=== PATIENT | male | born 1960 | race Caucasian/White ===

== ENCOUNTER 2024-07-11 07:55 | Outpatient (AMB) | payer OTHER, SELFPAY ==
--- NOTE | 2024-07-11 08:17 | A.OFFVIS_ITS ---
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 He started noticing intermittent tremors about 1 year ago.He is not clear if it is at rest or with action . Now he feels the tremors in his whole UE. He denies any tremors in left. He has paresthesias in tom hands intermittently for past 2 years.He denies pain. He also has balance issues and neck pain for past few months. Stress increases his tremors. He has h/o sleep apnea but does not use his CPAP. No mood issues. No change in speech . Has occasional drooling at night.No change in handwriting.No difficulty with using utensils, hand movements, dressing and showering No falls No hallucinations No dizziness PFSH Medical History (Updated 07/11/24 @ 09:04 by Ladonna Leiva MD) Paresthesias Cervicalgia Coarse tremors Weak urine stream Tremor of right hand Chronic sinusitis Prediabetes Polyarthralgia Morbid obesity Male perineal pain Hyperlipemia HTN (hypertension) Dyspnea on exertion Cervical radiculopathy Abnormal smell Surgical History History of appendectomy H/O right knee surgery History of back surgery Social History Household Members: Spouse and Children Housing: House Alcohol intake: current Comment: social- Beer Patient Tobacco Use Status: Never used Tobacco Physical Exam Vital Signs: Last Vital Signs Pulse 84 07/11/24 08:19 Resp 16 07/11/24 08:19 BP 142/70 H 07/11/24 08:19 Pulse Ox 100 07/11/24 08:19 Oxygen Delivery Method Room Air 07/11/24 08:19 BMI result Body Mass Index 40.3 Const General: cooperative and comfortable Nutritional Appearance: obese Orientation/consciousness: patient oriented x3 Eyes Pupils: Equal, round and reactive pupils present Neuro Other: Right UE postural tremors , action tremors 1 + cog wheel rigidity FFM mild decrease right hand Gait- antalgic , no arm swings on the right mild decreased facial expression and blink Neck decreased range of motion General: patient oriented x3, moves all extremities and no focal motor deficits Cranial nerves: Yes Facial sensation intact/muscles of mastication intact, Yes Equal, round and reactive pupils present, Yes Bilaterally intact EOM present, Yes Nystagmus not present, Yes Normal facial strength present, Yes Midline tongue present and Yes Symmetric palate elevation present Cognition (Neuro): normal cognition Motor exam (neuro): 5/5 motor strength present throughout Deep tendon reflexes (DTR's): Right triceps reflex intensity grade: 1+, Left triceps reflex intensity grade: 1+, Rt Biceps (C5, C6): 1+, Left biceps reflex intensity grade: 1+, Right brachioradialis reflex intensity grade: 1+, Left brachioradialis reflex intensity grade: 1+, Right patellar reflex intensity gr merly: 1+ and Left patellar reflex intensity grade: 1+ Coordination: [id number] test normal Assessment & Plan Assessment & Plan (1) Coarse tremors: Comment: with mild extrapyramidal symptoms Code(s): G25.2 - Other specified forms of tremor Category: Medical (2) Cervicalgia: Code(s): M54.2 - Cervicalgia Category: Medical (3) Paresthesias: Code(s): R20.2 - Paresthesia of skin Category: Medical Plan EMG NCS tom Ue for paretshesias PT for neck OT for hands will monitor tremors clincially will consider sleep study- patient declines for now. Orders: Orders OT Evaluation and Treatment Today G25.2 - Other specified forms of tremor NE electromyogram (EMG) Today R20.2 - Paresthesia of skin NE nerve conduction velocity Today R20.2 - Paresthesia of skin PT Evaluation and Treatment Today M54.2 - Cervicalgia Coding Level of Care Code New Pt Level 4 (02003) Complex EM visit Add On G2211 Diagnoses Coarse tremors G25.2 Cervicalgia M54.2 Paresthesias R20.2
[2024-07-11 08:19] VITALS: BP 142/70; PULSE 84; RESP 16; O2SAT 100; BMI 40.3
== END 2024-07-11 09:01 | disposition home or self-care (01) ==
PROVIDERS: PCP Internal Medicine; Visit Provider Psychiatry & Neurology Neurology
DX: G25.2 Other specified forms of tremor (principal); M54.2 Cervicalgia; R20.2 Paresthesia of skin
CPT/HCPCS: 99204; G2211

== ENCOUNTER → 2024-07-11 07:55 | Outpatient (BNVA) | payer OTHER, SELFPAY | PROVIDERS: PCP Internal Medicine; Visit Provider Psychiatry & Neurology Neurology ==

== ENCOUNTER 2024-07-21 08:52 | Outpatient (REF) | payer MEDICARE, OTHER, SELFPAY ==
--- NOTE | 2024-07-21 08:56 | EMG_ITS ---
Chief complaint: Right hand tremors, bilateral hand numbness Reason for referral: Evaluate for Carpal Tunnel Syndrome Referred by: Dr. Leiva Procedure done: Bilateral upper extremities NCS/EMG Precautions and/or limitations: None The limb temperature was monitored continuously and remained between 32-36 degrees C during the performance of the NCS. Nerve Conduction Studies Anti Sensory Summary Table ?Stim Site NR Onset (ms) Norm Onset (ms) Peak (ms) Norm Peak (ms) O-P Amp (?V) Norm O-P Amp Site1 Site2 Delta-0 (ms) Dist (cm) Nelson (m/s) Norm Nelson (m/s) Left Median Anti Sensory (2nd Digit) Wrist ? 3.3 4.5 <3.6 25.9 >10 Wrist 2nd Digit 3.3 14.0 42 Right Median Anti Sensory (2nd Digit) Wrist ? 3.5 4.4 <3.6 23.2 >10 Wrist 2nd Digit 3.5 14.0 40 Right Radial Anti Sensory (Thumb) Forearm ? 1.7 2.3 <3.1 18.9 Forearm Thumb 1.7 0.0 Left Ulnar Anti Sensory (5th Digit) Wrist ? 2.1 3.7 <3.7 15.0 >15.0 Wrist 5th Digit 2.1 14.0 67 Right Ulnar Anti Sensory (5th Digit) Wrist ? 2.4 3.6 <3.7 14.9 >15.0 Wrist 5th Digit 2.4 14.0 58 Motor Summary Table ?Stim Site NR Onset (ms) Norm Onset (ms) O-P Amp (mV) Norm O-P Amp iAmp (mV) Amp (1st) (%) Site1 Site2 Delta-0 (ms) Dist (cm) Nelson (m/s) Norm Nelson (m/s) Left Median Motor (Abd Poll Brev) Wrist ? 4.1 <3.9 7.3 >4.5 8.4 100.0 Elbow Wrist 4.5 25.5 57 >45 Elbow ? 8.6 6.7 7.8 91.8 Right Median Motor (Abd Poll Brev) Wrist ? 4.3 <3.9 10.7 >4.5 12.0 100.0 Elbow Wrist 4.5 24.0 53 >45 Elbow ? 8.8 10.6 12.0 99.1 Left Ulnar Motor (Abd Dig Minimi) Wrist ? 2.7 <3.0 10.9 >5 12.1 100.0 B Elbow Wrist 4.6 23.0 50 >45 B Elbow ? 7.3 9.9 10.8 90.8 A Elbow B Elbow 1.5 10.0 67 >45 A Elbow ? 8.8 9.5 10.4 87.2 Right Ulnar Motor (Abd Dig Minimi) Wrist ? 3.0 <3.0 10.9 >5 11.9 100.0 B Elbow Wrist 4.3 22.5 52 >45 B Elbow ? 7.3 10.0 10.3 91.7 A Elbow B Elbow 1.5 10.0 67 >45 A Elbow ? 8.8 9.7 11.8 89.0 EMG ?Side Muscle Nerve Root Ins Act Fibs Psw Amp Dur Poly Recrt Int Pat Comment Right 1stDorInt Ulnar C8-T1 Nml Nml Nml Nml Nml 0 Nml Complete Right FlexCarRad Median C6-7 Nml Nml Nml Nml Nml 0 Nml Complete Right Biceps Musculocut C5-6 Nml Nml Nml Nml Nml 0 Nml Complete Right Triceps Radial C6-7-8 Nml Nml Nml Nml Nml 0 Nml Complete Right Deltoid Axillary C5-6 Nml Nml Nml Nml Nml 0 Nml Complete Left 1stDorInt Ulnar C8-T1 Nml Nml Nml Nml Nml 0 Nml Complete Left FlexCarRad Median C6-7 Nml Nml Nml Nml Nml 0 Nml Complete Left Biceps Musculocut C5-6 Nml Nml Nml Nml Nml 0 Nml Complete Left Triceps Radial C6-7-8 Nml Nml Nml Nml Nml 0 Nml Complete Left Deltoid Axillary C5-6 Nml Nml Nml Nml Nml 0 Nml Complete FINDINGS: Bilateral median motor nerves showed prolonged distal latency, normal amplitude and normal conduction velocity. Bilateral median sensory nerves showed prolonged peak latency. All other nerves tested were within normal. Concentric needle EMG was performed in selected muscles of the bilateral upper extremities. Study did not reveal signs of electric abnormalities as shown in the table above. IMPRESSION: 1. This is an abnormal study. 2. There is electrodiagnostic evidence for bilateral moderate-severe median neuropathy at the wrist, consistent with carpal tunnel syndrome. 3. There is no electrodiagnostic evidence for ulnar neuropathy, brachial plexopathy, or cervical radiculopathy. Thank you for your kind referral. Faith Desouza MD, [place] Board Certified, [place] [employer] and Rehabilitation (ABPMR) Board Certified, [place] Board of Electrodiagnostic Medicine (ABEM) CODIN [id number] x 2 MTDD
== END 2024-07-21 08:53 | disposition home or self-care (01) ==
LOC: HO.NEURO 08:52
PROVIDERS: PCP Internal Medicine; Visit Provider Psychiatry & Neurology Neurology
DX: R20.2 Paresthesia of skin (principal)
CPT/HCPCS: 95886; 95911

== ENCOUNTER → 2024-07-21 08:56 | Outpatient (BNV) | payer OTHER, SELFPAY | PROVIDERS: PCP Internal Medicine; Visit Provider Physical Medicine & Rehabilitation | DX: G56.03 Carpal tunnel syndrome, bilateral upper limbs (principal) | CPT/HCPCS: 95886; 95911 ==

== ENCOUNTER 2025-01-29 08:52 | Outpatient (AMB) | payer OTHER, SELFPAY ==
--- NOTE | 2025-01-29 08:55 | MHC.OFFVIS ---
Vital Signs 01/29/25 08:56 Height 6 ft Weight 294 lb BMI 39.9 BP 124/78 Blood Pressure Location Rt brachial Position Sitting Pulse 88 Pulse Source Pulse Oximeter Pulse Oximetry (%) 98 Oxygen Delivery Method Room Air Intake Visit Reasons: Follow up Tremor Intake Note: Patient presents for follow up EMG nerve conduction studies done 07/21/24. patient did not schedule PT. couldnt take time off. Allergies No Known Allergies Allergy (Verified 01/29/25 08:58) Medication List - Last Reconciled 01/29/25 by Ladonna Leiva MD atorvastatin 10 mg PO DAILY clopidogrel 75 mg PO DAILY fluticasone propionate 50 mcg/actuation (Flonase Allergy Relief) 1 spray intranasal DAILY lisinopril-hydrochlorothiazide 10-12.5 mg 1 tab PO DAILY methocarbamol 750 mg PO TID HPI Comments Details: 64y/o right handed male comes for follow up of right handed tremors.His EMG was c/w tom median neuropathy- patient feels his parasthesias and pain are less. Tremors are less compared to last visit. History form initial viist- He started noticing intermittent tremors about 1 year ago.He is not clear if it is at rest or with action . Now he feels the tremors in his whole UE. He denies any tremors in left. He has paresthesias in tom hands intermittently for past 2 years.He denies pain. He also has balance issues and neck pain for past few months. Stress increases his tremors. He has h/o sleep apnea but does not use his CPAP. No mood issues. No change in speech . Has occasional drooling at night.No change in handwriting.No difficulty with using utensils, hand movements, dressing and showering No falls No hallucinations No dizziness PFSH Medical History Carpal tunnel syndrome on both sides Paresthesias Cervicalgia Coarse tremors Weak urine stream Tremor of right hand Chronic sinusitis Prediabetes Polyarthralgia Morbid obesity Male perineal pain Hyperlipemia HTN (hypertension) Dyspnea on exertion Cervical radiculopathy Abnormal smell Surgical History H/O eye surgery History of appendectomy H/O right knee surgery History of back surgery Social History Household Members: Spouse and Children Housing: House Alcohol intake: current Comment: social- Beer Patient Tobacco Use Status: Never used Tobacco Physical Exam Vital Signs: Last Vital Signs Pulse 88 01/29/25 08:56 BP 124/78 01/29/25 08:56 Pulse Ox 98 01/29/25 08:56 Oxygen Delivery Method Room Air 01/29/25 08:56 BMI result Body Mass Index 39.9 Const General: cooperative and comfortable Nutritional Appearance: obese Orientation/consciousness: patient oriented x3 Eyes Pupils: Equal, round and reactive pupils present Neuro Other: Right UE postural tremors , action tremors 1 + cog wheel rigidity FFM mild decrease right hand Gait- antalgic , no arm swings on the right mild decreased facial expression and blink Neck decreased range of motion General: patient oriented x3, moves all extremities and no focal motor deficits Cranial nerves: Yes Facial sensation intact/muscles of mastication intact, Yes Equal, round and reactive pupils present, Yes Bilaterally intact EOM present, Yes Nystagmus not present, Yes Normal facial strength present, Yes Midline tongue present and Yes Symmetric palate elevation present Cognition (Neuro): normal cognition Motor exam (neuro): 5/5 motor strength present throughout Coordination: [id number] test normal Assessment & Plan Assessment & Plan (1) Coarse tremors: Comment: with mild extrapyramidal symptoms Code(s): G25.2 - Other specified forms of tremor Category: Medical (2) Cervicalgia: Code(s): M54.2 - Cervicalgia Category: Medical (3) Paresthesias: Code(s): R20.2 - Paresthesia of skin Category: Medical (4) Carpal tunnel syndrome on both sides: Code(s): G56.03 - Carpal tunnel syndrome, bilateral upper limbs Category: Medical Plan EMG discussed wrist splints for the night will monitor tremors clincially will consider sleep study- patient declines for now. Medications: New [wrist splints] As directed 1 ea 0RF carpal tunnel Coding Level of Care Code Est Pt Level 4 (42986) Diagnoses Coarse tremors G25.2 Cervicalgia M54.2 Paresthesias R20.2 Carpal tunnel syndrome on both sides G56.03
[2025-01-29 08:56] VITALS: BP 124/78; PULSE 88; O2SAT 98; BMI 39.9
--- OUTSIDE RECORDS SUMMARY | 2025-01-29 09:18 | XMS_ITS | Data Portability ---
Author Organization [place] - [facility], Allergy Address [address] [facility] [address] [place] [phone] Assessment Encounter Date Assessment Date Assessment LastModified by Organization Details LastModified Time 04/03/2024 04/03/2024 63-year-old male presents for evaluation of possible nasal polyp. Anterior rhinoscopy is unremarkable without obvious polyp or nasal drainage. Nasal endoscopy was performed today and shows no concerning findings. Examination of the oral cavity reveals fasciculation of the tongue. Patient also has resting tremor in his hands. His exam is suspicious for neurologic process. Highly recommended he keep his neurology appointment next month. May continue Flonase as this has helped with nasal drainage. No further ENT intervention recommended. [email or web address] Not available 04/03/2024 11:08:39 Plan of Treatment Reminders Order Date Submit Date Provider Last Modified By Organization Details Last Modified Time Details Appointments None record ed. Lab None record ed. Referral None record ed. Procedures None record ed. Surgeries None record ed. Imaging None record ed. Medication Orders None record ed. Patient TargetsNo targets recorded. Patient InstructionsNo instructions recorded. Reason for Referral None Reported. Problems Name Problem SNOMED Code Status Onset Date Resolution Date Notes Provider Name and Address Organization Details Recorded Time Nasal congestion 33619962 Active 2023 Lindy caballero [place] - [facility] 4 10:41:30 Parosmia 180432907 Active 2023 CRISTA BONILLA PA-C [address] [place] [address],[place] [id number], [place], [phone] , [place] - [facility] 4 11:10:51 Resting tremor 63348029 Active 2023 CRISTA BONILLA PA-C [address] [place] [address],[address], [phone] , [facility] - [facility] 4 11:11:10 Problem Notes None recorded. Procedures Surgical History Date Name Laterality Status Provider Name and Address Organization Details Recorded Time 4 JMSNasal/Sinus Endoscopy completed CRISTA BONILLA PA-C [address] [place] [address], [phone], [facility] - [facility] 04/03/2024 11:09:26 Imaging Results None recorded. Procedure Notes None recorded. Medical Equipment None Reported. Allergies No known drug allergies Medications Name Sig Start Date Stop Date Status Note LastModified by Organization Details LastModified Time atorvastatin 20 mg tablet Take 1 tablet every day by oral route. active Not Available Not Available No t Available clopidogrel 75 mg tablet Take 1 tablet every day by oral route. active Not Available Not Available No t Available aspirin 81 mg chewable tablet Chew 1 tablet every day by oral route. active Not Available Not Available No t Available fluticasone 100 mcg-salmeter ol 50 mcg/dose blistr powdr for inhalation Inhale 1 puff twice a day by inhalation route. active Not Available Not Available No t Available lisinopril 10 mg-hydrochlo rothiazide 12.5 mg tablet Take 1 tablet every day by oral route. active Not Available Not Available No t Available cyclobenzapr ine active Not Available Not Available Not Available Vitals Date Recorded Body height Body mass index (BMI) Body weight Provider Name and Address Organization Details Last Updated DateTime 04/03/2024 180.34 cm 40.4 kg/m2 028387.79 g Lindy Demarco [place] - [facility] 04/03/2024 10:37:01 Social History None recorded. Functional Status None recorded. Mental Status None recorded. Family History Nothing Reported. Medical History No medical history recorded. Past Encounters Encounter ID Performer Location Encounter Start Date Encounter Closed Date Diagnosis/Indication Diagnosis SNOMED-CT Code Diagnosis ICD10 Code Diagnosis Note [id number] CRISTA BONILLA PA-C [facility] [address] [phone] 04/03/2024 10:27:05 04/03/2024 10:56:40 Parosmia 614591774 R43.1 Resting tremor 25536328 G25.2 Health Concerns Section Related Observation LastModified by Organization Detai ls LastModified Time None Recorded Concern Status LastModified by Organization Details LastModified Time None Recorded Advance Directives Directive None Recorded Payers Encounter Date Sequence Insurance Name Policy Number Policy Bennett Covered Member ID Bennett Member ID Guarantor Name 04/03/2024 1 [facility] [id number] Tha Joseph [id number] Tha Joseph Notes Date Note Type Note Provider Name and Address Organization Details Recorded Time 04/03/2024 text/html 63-year-old male presents for evaluation of possible nasal polyps. Patient states that for the last year or 2 he has been having an abnormal smell of ammonia in his nose. He was having thick white nasal discharge but was started on Flonase by his primary care and this has resolved. Having some frontal headaches with sensitivity to light and sound. Was having some nausea in relation to postnasal drip but this has resolved. He is also having chronic neck pain and a new onset tremor. Is scheduled to see neurology next month. CRISTA BONILLA PA-C [address] [place] [address], [phone], [facility] - [facility] 04/03/2024 11:12:36
--- OUTSIDE RECORDS SUMMARY | 2025-01-29 09:18 | XMS_ITS | Continuity of Care Document ---
Author Organization [facility] Address [address] [place] [address]- Care Team Providers Care Business Applications Manager Name Role Phone Sarkis ROCHE, Carlyle Primary Care Physician [place] [facility] [place]/25 [facility] [address] [place] [id number] Encounter Type: Triage Allergies, Adverse Reactions, Alerts No Known Medication Allergies Immunizations Given and Recorded Vaccine Date Status Refusal Reason influenza virus vaccine, inactivated 08/28/23 Matias rded influenza virus vaccine, inactivated 10/28/22 Matias rded influenza virus vaccine, inactivated 1 09/22/21 Gi kassi influenza virus vaccine, inactivated 2 09/13/20 Gi kassi SARS-CoV-2(COVID-19)mRNA-LNP vac([id number]) 08/28/23 Recorded tetanus/diphtheria/pertussis, acel(Tdap) 07/07/23 Given [id number] 12y+ bivalent booster vax 08/15/22 Recorded SARS-CoV-2 mRNA ([id number]) vax 04/18/22 Recorded SARS-CoV-2 (COVID-19) mRNA BNT-162b2 vac 11/13/21 Recorded SARS-CoV-2 (COVID-19) mRNA BNT-162b2 vac 04/06/21 Recorded SARS-CoV-2 (COVID-19) mRNA BNT-162b2 vac 03/16/21 Recorded 1Result Comment: [id number] 2Result Comment: [id number] Medications atorvastatin 20 mg oral tablet See Instructions, TAKE 1 TABLET BY MOUTH EVERY DAY AFTER SUPPER, # 90 tablet, 1 Refills, Maintenance, 09/21/24 12:36:00 PM EST, [facility] STORE [id number], 180, cm, 07/25/24 7:48:00 EDT, Height, 132.6, kg, 02/19/24 18:33:00 EDT, Dry Weight Start Date: 09/21/24 Status: Ordered Quantity: 90.0 Unit: tablet Repeat number: 1 clopidogrel 75 mg oral tablet 75 mg, 1, tablet, By Mouth, Daily, # 90 tablet, Refills 0, Tot. Refills 0, Maintenance, 12/22/24 11:53:00 AM EST, Route to Pharmacy Electronically, [facility]/pharmacy #[id number], Partial fill upon patient requestif the prescription is for a schedule II opioid drug., 180, cm, 10/18/24 7:15:00 EST, Height, 135.9, kg, 10/18/24 7:15:00 EST, Dry Weight Start Date: 12/22/24 Stop Date: 03/22/25 Status: Ordered Quantity: 90.0 Unit: tablet Repeat number: 1 hydrochlorothiazide-lisinopril 12.5 mg-10 mg oral tablet 1 tablet, By Mouth, Daily, # 90 tablet, 1 Refills, Maintenance, 12/27/24 3:19:00 PM EST, [facility]/pharmacy #[id number], 90, 1 tablet By Mouth Daily, 180, cm, 10/18/24 7:15:00 EST, Height, 135.9, kg, 10/18/24 7:15:00 EST, Dry Weight Start Date: 12/27/24 Status: Ordered Quantity: 90.0 Unit: tablet Repeat number: 2 Voltaren Topical = 2 Gm, Topically, 4 times a day, 0 Refills, Maintenance, 10/02/24 10:35:00 AM EST, Partial fill upon patient request if the prescription is for a schedule II opioid drug. Start Date: 10/02/24 Status: Ordered Repeat number: 1 Problem List Condition Confirmation Course Effective Dates Status H ealth Status Informant Abnormal vision Confirmed Active Cervical radiculopathy Confirmed Active Sinusitis, chronic Confirmed Active Vaccine counseling Confirmed Active Dyspnea on exertion Confirmed Active Tremor of right hand Confirmed Active Hyperlipidemia Confirmed Active HTN (hypertension) Confirmed Active Morbid obesity Confirmed Active Polyarthralgia Confirmed Active Male perineal pain Confirmed Active Weak urine stream Confirmed Active Prediabetes Confirmed Active Severe obesity Confirmed Active Abnormal smell Confirmed Active Social History Social History Type Response Smoking Status Never (less than 100 in lifetime) entered on: 10/02/24 Sex Sex Representation Male (finding) Patient Care team information Care Team Personnel Name: Carlyle Dockery MD Position: [facility] Physician - Primary Care Member Role: PCP Address: [address] [place] [id number] Telecom: Care Team Related Persons Name: KERRY RUDOLPH Insurance Providers Guarantor name: ALINA WILSON Health Plan Information #: 1 Payer: MEDICARE PART B OUTPT Member Number: NA Policy Number: NA Group Number: NA Health Plan Information #: 2 Payer: [facility] PL[facility] Member Number: NA Policy Number: NA Group Number: NA
--- OUTSIDE RECORDS SUMMARY | 2025-01-29 09:18 | XMS_ITS | Continuity of Care Document ---
Author Organization [facility] Address [address] [place] [address]- Care Team Providers Care Folding Machine Feeder Name Role Phone Sarkis ROCHE, Carlyle Primary Care Physician [id number] Date(s): 12/21/24 - 01/20/25 [facility] [address] [place] [id number] Encounter Type: Triage Allergies, Adverse Reactions, Alerts No Known Medication Allergies Immunizations Given and Recorded Vaccine Date Status Refusal Reason influenza virus vaccine, inactivated 08/28/23 Matias rded influenza virus vaccine, inactivated 10/28/22 Matias rded influenza virus vaccine, inactivated 1 09/22/21 Gi kassi influenza virus vaccine, inactivated 2 09/13/20 Gi kassi SARS-CoV-2(COVID-19)mRNA-LNP vac([id number]) 08/28/23 Recorded tetanus/diphtheria/pertussis, acel(Tdap) 07/07/23 Given [id number] 12y+ bivalent booster vax 08/15/22 Recorded SARS-CoV-2 mRNA ([id number]) vax 04/18/22 Recorded SARS-CoV-2 (COVID-19) mRNA BNT-162b2 vac 11/13/21 Recorded SARS-CoV-2 (COVID-19) mRNA BNT-162b2 vac 04/06/21 Recorded SARS-CoV-2 (COVID-19) mRNA BNT-162b2 vac 03/16/21 Recorded 1Result Comment: [id number] 2Result Comment: [id number] Medications atorvastatin 20 mg oral tablet See Instructions, TAKE 1 TABLET BY MOUTH EVERY DAY AFTER SUPPER, # 90 tablet, 1 Refills, Maintenance, 09/21/24 12:36:00 PM EST, [id number], 180, cm, 07/25/24 7:48:00 EDT, Height, 132.6, kg, 02/19/24 18:33:00 EDT, Dry Weight Start Date: 09/21/24 Status: Ordered Quantity: 90.0 Unit: tablet Repeat number: 1 clopidogrel 75 mg oral tablet 75 mg, 1, tablet, By Mouth, Daily, # 90 tablet, Refills 0, Tot. Refills 0, Maintenance, 12/22/24 11:53:00 AM EST, Route to Pharmacy Electronically, [facility]/pharmacy #[id number], Partial fill upon patient requestif the [...] 1 Refills, Maintenance, 12/27/24 3:19:00 PM EST, [facility]/pharmacy #[id number], 90, 1 tablet By Mouth Daily, [...] Team Personnel Name: Carlyle Dockery MD Position: [facility] Physician - Primary Care Member Role: PCP Address: [address] [place] [id number] Telecom: Care Team Related Persons Name: KERRY RUDOLPH Insurance Providers Guarantor name: ALINA WILSON Health Plan Information #: 1 Payer: MEDICARE PART B OUTPT Member Number: NA Policy Number: NA Group Number: NA Health Plan Information #: 2 Payer: [facility] Member Number: NA Policy Number: NA Group Number: NA
== END 2025-01-29 09:10 | disposition home or self-care (01) ==
LOC: HO.HSMS 08:52
PROVIDERS: PCP Internal Medicine; Visit Provider Psychiatry & Neurology Neurology
DX: G25.2 Other specified forms of tremor (principal); M54.2 Cervicalgia; R20.2 Paresthesia of skin; G56.03 Carpal tunnel syndrome, bilateral upper limbs
CPT/HCPCS: 99214